=== PATIENT | female | born 1960 | race Caucasian/White ===

== ENCOUNTER 2023-04-15 07:00 | Outpatient (CLI) | payer BC, OTHER ==
--- NOTE | 2023-04-15 17:54 | XRAY Report ---
PROCEDURE: Cervical Spine 2 View INDICATIONS: ACUTE NECK PAIN, DYSPHAGIA TECHNIQUE: 3 view(s) of the cervical spine were acquired. COMPARISON: None. FINDINGS: Bones: No fractures or dislocations to the T1 level. The lateral masses of C1 appear intact on the odontoid view. No suspicious bony lesions. Moderate to severe cervical spondylosis. Severe disc heig ht loss at C5-C6 and C6-C7 with anterior osteophytes and uncovertebral joint hypertrophy. Multilevel facet arthropathy. Soft tissues: No prevertebral soft tissue swelling. IMPRESSION: Moderate to severe cervical spondylitic change. Reviewed by: Joshua Sosa MD on 04/15/2023 5:53 PM PDT Approved by: Joshua Sosa MD on 04/15/2023 5:53 PM PDT Station ID: [id number]
== END 2023-04-15 23:59 | disposition home or self-care (01) ==
LOC: DI.S 07:00
PROVIDERS: ATTEND Physician Assistant
DX: M47.812 Spondylosis without myelopathy or radiculopathy, cervical region (principal)